=== PATIENT | male | born 1960 | race Caucasian/White ===

== ENCOUNTER → 2017-09-08 | Day surgery (SDC) | payer OTHER ==
[~2017-09-08] MED LIST: AMLODIPINE BESYL5 MG PO; ATORVASTATIN CA20 MG PO; BENICAR20 MG PO; EYE DROPS; EYE DROPS15 M1; FENTANYL CITRATE/PF 100MCG/2 ML INJ ONE; LEVOTHYROXINE75 MCG PO; LIDOCAINE HCL 2% LOCAL INJ 5 ML SDV VIAL INJ ONE; METFORMIN HCL500 M2 PO; MIDAZOLAM HCL 2 MG/2 ML VIAL ONE; PROPOFOL IV EMULSION 10 MG/ML 50 ML VIAL ONE
--- NOTE | 2017-09-08 15:56 | Operative Report ---
DATE OF PROCEDURE: September 08, 2017 REFERRING PHYSICIAN: Dr. Hanane Evans. PROCEDURE PERFORMED: 1. Esophagogastroduodenoscopy with biopsies. 2. Colonoscopy with polypectomy. INDICATIONS FOR ESOPHAGOGASTRODUODENOSCOPY: Anemia. INDICATIONS FOR COLONOSCOPY: Colorectal cancer screening. Anemia. MEDICATION: Patient was done under MAC. Please see anesthesiologist's note. PROCEDURE: With the patient in the left lateral decubitus position, the flexible fiberoptic Olympus gastroscope was introduced into the esophagus under direct visualization without any difficulty. There was some patchy erythema noted in the distal esophagus. The scope was then advanced with ease into the stomach. Mucosa overlying the antrum and the body revealed some patchy erythema and mild to moderate edema, and biopsies were obtained and sent to stain for H. pylori. The pylorus was of normal contour and shape, was intubated with ease, and the scope was advanced all the way to the 2nd portion of the duodenum. Mucosa overlying the proximal 2nd portion appeared to be within normal limits. Biopsies were obtained to rule out sprue considering patient's history of anemia. Mucosa overlying the duodenal bulb appeared to be within normal limits. The scope was then withdrawn back into the stomach and retroflexed, and the mucosa overlying the fundus and the cardia appeared to be within normal limits. The scope was then straightened out. The stomach was decompressed. The scope was subsequently withdrawn. Patient tolerated procedure well. IMPRESSION: 1. Distal esophagitis, mild. 2. Gastritis biopsied. Biopsies sent to stain for H. pylori. 3. Rule out sprue. PLAN: Follow up histology. Initiate Protonix 40 mg 1 p.o. q.a.m. a.c. Patient was then turned around and after adequate lubrication of the anal canal, a flexible fiberoptic Olympus colonoscope was inserted into the rectum with ease and advanced all the way to the cecum. Mucosa overlying the cecum, ascending and transverse appeared to be within normal limits. Some minimal diverticulosis was noted in the distal descending and the sigmoid colon. Two polyps were hot biopsied and 1 polyp was snared from the sigmoid colon. Two polyps were hot biopsied from the rectum. The scope was then retroflexed into the distal rectum, and small internal hemorrhoids were noted, none of which was actively bleeding. IMPRESSION: 1. Diverticulosis, minimal. 2. Sigmoid colon polyps times 3, 1 snared, 2 hot biopsied. 3. Rectal polyps times 2 hot biopsied. 4. Internal hemorrhoids, none actively bleeding. PLAN: Follow up histology. Initiate high-fiber low-fat diet. Initiate high-fiber supplement. Patient will need small-bowel series to complete workup. Patient might benefit from a followup colonoscopy in 3 years. Job#: [id number] EV cc:HANANE EVANS, DO
== END | disposition home or self-care (01) ==
LOC: OR 11:13
PROVIDERS: ATTEND Internal Medicine Gastroenterology
DX: D64.9 Anemia, unspecified (principal); K63.5 Polyp of colon; K62.1 Rectal polyp; K29.70 Gastritis, unspecified, without bleeding; K57.30 Diverticulosis of large intestine without perforation or abscess without bleeding; K20.9 Esophagitis, unspecified; K64.8 Other hemorrhoids; H40.9 Unspecified glaucoma; I10 Essential (primary) hypertension; E11.9 Type 2 diabetes mellitus without complications; Z01.810 Encounter for preprocedural cardiovascular examination
CPT/HCPCS: 36415; 43239; 45384; 45385; 82948; 93005; J2001; J2250

== ENCOUNTER 2018-08-12 09:19 | Observation (INO) | payer OTHER, BC ==
[~2018-08-12] VITALS: Ht 177.8 cm; Wt 80.3 kg
[2018-08-12] VITALS (9 sets, daily range): BP systolic 106–122; BP diastolic 58–86
[~2018-08-12 09:19] MED LIST changes: -FENTANYL CITRATE/PF 100MCG/2 ML INJ ONE; -LIDOCAINE HCL 2% LOCAL INJ 5 ML SDV VIAL INJ ONE; -MIDAZOLAM HCL 2 MG/2 ML VIAL ONE; +PREDNISOLO15 MG/5 ML OP; -PROPOFOL IV EMULSION 10 MG/ML 50 ML VIAL ONE
[2018-08-12 10:37] LABS: BASOPHILS % 0.4 % (0.0-1.0); EOSINOPHILS # (AUTO) 0.3 (0.0-0.4); EOSINOPHILS % 3.1 % (0.0-6.0); HEMATOCRIT 38.6 % (38.2-49.6); HEMOGLOBIN 13.3 g/dL (14.0-18.0); LYMPHOCYTES # (AUTO) 1.6 (1.0-3.2); LYMPHOCYTES % 17.5 % (18.0-39.1); MEAN CORPUSCULAR HEMOGLOBIN 31.1 pg (28-32); MEAN CORPUSCULAR HGB CONC 34.5 g/dL (31-35); MEAN CORPUSCULAR VOLUME 90.4 fL (81-99); MONOCYTES # (AUTO) 0.6 (0.2-0.8); MONOCYTES % 6.9 % (4.4-11.3); NEUTROPHILS # (AUTO) 6.4 (2.1-6.9); NEUTROPHILS % 71.8 % (38.7-80.0); PLATELET COUNT 217 x10e3/uL (140-360); RED BLOOD COUNT 4.27 x10e6/uL (4.3-5.7); RED CELL DISTRIBUTION WIDTH 11.9 % (11.7-14.4)
[2018-08-12] MEDS ORDERED: SODIUM CHLORIDE 0.9% 1000ML 1,000 ML ONE (10:44)
[2018-08-12] MEDS ORDERED: DIPHENHYDRAMINE HCL INJ 50 MG/ML VIAL ONE (10:44)
[2018-08-12] MEDS ORDERED: METHYLPREDNISOLONE SOD SUCC 125 MG/2ML VIAL ONE (10:44)
[2018-08-12] MEDS ORDERED: LIDOCAINE HCL 1% LOCAL INJ 20 ML VIAL ONE (10:44)
[2018-08-12] MEDS ORDERED: IOPAMIDOL 370 MG/ML 200 ML INFUS..BTL INJ ONE ×2 (10:44→12:03)
[2018-08-12] MEDS ORDERED: HEPARIN SOD/SOD CHLORIDE 2,000 ML ONE (10:44)
[2018-08-12 10:57] LABS: ALANINE AMINOTRANSFERASE 34 IU/L (0-55); ALBUMIN 4.8 g/dL (3.5-5.0); ALBUMIN/GLOBULIN RATIO 1.8 (0.8-2.0); ALKALINE PHOSPHATASE 48 IU/L (40-150); ANION GAP 18.1 mmol/L (8-16); BLOOD UREA NITROGEN 16 mg/dL (7-26); BUN/CREATININE RATIO 14 (6-25); CALCIUM 10.2 mg/dL (8.4-10.2); CARBON DIOXIDE 25 mmol/L (22-29); CHLORIDE 104 mmol/L (98-107); CREATINE KINASE 277 IU/L (30-200); CREATININE, SERUM 1.15 mg/dL (0.72-1.25); EST GLOMERULAR FILTRATION RATE > 60 ML/MIN (60-); GLUCOSE 162 mg/dL (74-118); POTASSIUM 4.1 mmol/L (3.5-5.1); SODIUM 143 mmol/L (136-145)
[2018-08-12] MEDS ORDERED: MIDAZOLAM HCL 2 MG/2 ML VIAL ONE (11:04)
[2018-08-12] MEDS ORDERED: VERAPAMIL HCL 2.5 MG/ML 2 ML VIAL ONE (11:04)
[2018-08-12] MEDS ORDERED: HEPARIN SOD (PORCINE) 1000 UNIT/ML 30ML ONE (11:04)
[2018-08-12] MEDS ORDERED: NITROGLYCERIN/D5W 200 MCG/ML 250 ML ONE (11:05)
[2018-08-12] MEDS ORDERED: FENTANYL CITRATE/PF 100MCG/2 ML INJ ONE (11:05)
[2018-08-12] MEDS ORDERED: ADENOSINE 3MG/1ML 30ML VIAL ONE (11:51)
[2018-08-12] MEDS ORDERED: SODIUM CHLORIDE 0.9% 50ML 0 ML ONE (11:51)
[2018-08-12] MEDS ORDERED: ASPIRIN 325 MG TAB ONE (12:21)
[2018-08-12] MEDS ORDERED: CLOPIDOGREL BISULFATE 75 MG TAB ONE (12:21)
[2018-08-12] MEDS ORDERED: INFLUENZA VIRUS VAC SPLIT INJ 0.5 ML SYR IM ONE (15:45)
[2018-08-12 19:07] LABS: CREATINE KINASE MB 3.8 ng/mL (0-5.0)
--- NOTE | 2018-09-01 12:37 | Operative Report ---
DATE OF PROCEDURE: August 12, 2018 INDICATIONS FOR PROCEDURE: Chest pain and positive stress test. PRESEDATION ASSESSMENT: The patient's medical record, pertinent diagnostic testing, previous record with anesthesia and social history were reviewed prior to the procedure. Patient was deemed to be an appropriate candidate for moderate sedation. INFORMED CONSENT: The risks, the benefits and the alternatives of the procedure were explained to the patient prior to the procedure, and informed consent was obtained. MEDICATION ADMINISTRATION: Please see nursing notes for medications administered during the procedure. PROCEDURES PERFORMED 1. Coronary angiography. 2. Left heart catheterization. 3. Percutaneous coronary intervention to the mid left anterior descending with Synergy 2.25 x 12 mm drug-eluting stent. PROCEDURE DETAILS: The patient was brought to the cardiac catheterization laboratory in a fasting state. The right wrist was prepped and draped in a sterile fashion. A 6-[place] Slender sheath was inserted in the right radial artery using the modified Seldinger technique. Coronary angiography was performed using a Nostalgia Bingo diagnostic catheter. A 70% lesion in the mid LAD was noted. For the PCI of the mid LAD, a 6-[place] XB3.5 guide catheter was used. Choice PT guidewire was used to cross the lesion. The lesion was directly stented using a 2.25 x 12 mm Synergy drug-eluting stent at high pressures. This resulted in excellent angiographic result with no residual dissection, thrombus or spasm. All catheters were removed over a wire. The case ended without any complications. Access site was closed using a TR band. PERTINENT FINDINGS 1. Left main coronary artery was a large vessel. No significant CAD. 2. The LAD was a large vessel that wraps around the apex. There is a 70% lesion of the mid LAD. There are 2 significant diagonal branches. 3. The left circumflex artery is a large, dominant, left circumflex artery, with 2 significant OM branches and distal PDA and PL branches. 4. RCA: Small, nondominant RCA. CONCLUSION: Successful PCI of the mid LAD with a Synergy 2.25 x 12 mm drug-eluting stent. RECOMMENDATIONS 1. Usual post-PCI care post TR band removal. 2. Continue aspirin and Plavix daily for at least 1 year, preferably longer. 3. Follow up in clinic 2 weeks after discharge. Thank you for this consult. Job#: [id number]
== END 2018-08-12 18:32 | disposition home or self-care (01) ==
LOC: ER 09:19 → UNDOADMOB 10:50 → ERHOLD 10:50 → CATH LAB 11:48 → PACU V 11:49 → MED/SURG 15:06
PROVIDERS: ADMIT Internal Medicine Interventional Cardiology; ATTEND Internal Medicine Interventional Cardiology
DX: I25.10 Atherosclerotic heart disease of native coronary artery without angina pectoris (principal); Z23 Encounter for immunization; Z91.041 Radiographic dye allergy status; Z79.84 Long term (current) use of oral hypoglycemic drugs; Z87.891 Personal history of nicotine dependence
CPT/HCPCS: 36415; 80053; 82550; 82553; 82948; 84484; 85025; 85347; 86850; 86900; 92928; 93005; 93454; 99284; G0378; J1200; J1644; J2001; J2250; J2930; J7030; Q9967; 80061; C1769; C1874; J0153

== ENCOUNTER → 2020-08-07 | Day surgery (SDC) | payer BC ==
[2020-08-02 08:34] LABS: BASOPHILS % 0.4 % (0.0-1.0); EOSINOPHILS # (AUTO) 0.4 (0.0-0.4); EOSINOPHILS % 5.1 % (0.0-6.0); HEMATOCRIT 36.6 % (38.2-49.6); HEMOGLOBIN 12.3 g/dL (14.0-18.0); LYMPHOCYTES # (AUTO) 1.7 (1.0-3.2); LYMPHOCYTES % 22.7 % (18.0-39.1); MEAN CORPUSCULAR HEMOGLOBIN 30.8 pg (28-32); MEAN CORPUSCULAR HGB CONC 33.6 g/dL (31-35); MEAN CORPUSCULAR VOLUME 91.7 fL (81-99); MONOCYTES # (AUTO) 0.6 (0.2-0.8); MONOCYTES % 7.9 % (4.4-11.3); NEUTROPHILS # (AUTO) 4.7 (2.1-6.9); NEUTROPHILS % 63.1 % (38.7-80.0); PLATELET COUNT 214 x10e3/uL (140-360); RED BLOOD COUNT 3.99 x10e6/uL (4.3-5.7); RED CELL DISTRIBUTION WIDTH 11.8 % (11.7-14.4)
[2020-08-02 09:12] LABS: ALBUMIN 4.5 g/dL (3.5-5.0); ALBUMIN/GLOBULIN RATIO 1.7 (0.8-2.0); ANION GAP 12.6 mmol/L (8-16); CALCIUM 8.6 mg/dL (8.4-10.2); CREATININE, SERUM 1.27 mg/dL (0.72-1.25); POTASSIUM 4.6 mmol/L (3.5-5.1)
[~2020-08-07] VITALS: Ht 175.3 cm; Wt 79.4 kg
[2020-08-07] VITALS (9 sets, daily range): BP systolic 109–160; BP diastolic 58–93
[~2020-08-07] MED LIST changes: +ALPRAZOLAM 0.5 MG TAB ONE; +CELEBREX200 MG PO; +DIPHENHYDRAMINE HCL 25 MG CAP ONE; +FAMOTIDINE 20 MG/2 ML VIAL IV ONE; +FENTANYL CITRATE/PF 100MCG/2 ML INJ ONE; +HEPARIN SOD (PORCINE) 1000 UNIT/ML 30ML ONE; +HEPARIN SOD/SOD CHLORIDE 2,000 ML ONE; +IOPAMIDOL 370 MG/ML 200 ML INFUS..BTL INJ ONE; +LIDOCAINE HCL 2% LOCAL 20 ML VIAL ONE; +LOSARTAN POTAS100 MG PO; +METFORMIN HCL500 MG PO; +METHYLPREDNISOLONE SOD SUCC 125 MG/2ML VIAL ONE; +METOPROLOL SUCC50 MG PO; +MIDAZOLAM HCL 2 MG/2 ML VIAL ONE; +PLAVIX75 MG PO; +RANEXA500 MG PO; +SODIUM CHLORIDE 0.9% 1000ML 1,000 ML ONE; +VERAPAMIL HCL 2.5 MG/ML 2 ML VIAL ONE
--- NOTE | 2020-08-07 11:45 | NUR ---
pt in ACU 8 , prepped for procedure. Alert oriented and appropriate, PERRLA, respirations even and unlabored to room air. Pulses x4 extremities equal and palpable . Cap fill brisk < 3 sec. + modified barbeau and neurovascular function of right wrist/hand. Right wrist and bilateral groin prepped for procedure. skin intact. Skin warm and dry integrity appears intact in general. IV 20g x2 atempt to right anterior forearm and presents healthy w/o s/s of infiltration or complaint. Abdomen soft and supple. pt offered toileting, denies need to urinate or defecate. Personal affects with patient. Family at bedside . Pt verbalizes understanding of POC. Educated recreation establishment manager light use. bed low and locked, side rails up x2 and call light at side. Awaiting for physician arrival/procedure time. pt using provided/ personal mask for COVID-19 mitigation. -cgf
--- NOTE | 2020-08-07 11:50 | NUR ---
Pre-op meds given (xanax 0.5mg, bandadryl 50mg, solumedrol 125mg IV and pepcid 20mg IV slow IVP) - IV patent
--- NOTE | 2020-08-07 12:15 | NUR ---
Dr Fam informing a delay to at least 1600 potentially, informed pt and family. pt allowed immediate snack, refuses. call light remains at side
--- NOTE | 2020-08-07 14:00 | NUR ---
pt resting with eyes closed, saturation 98%
--- NOTE | 2020-08-07 16:00 | NUR ---
patient and family informed delay in procedure time
--- NOTE | 2020-08-07 18:15 | NUR ---
recovery phase initiated continuation of care from procedure. Alert oriented and appropriate, PERRLA, respirations even and unlabored to room air. Pulses x4 extremities equal and strong. Right hand + neurovascular function Cap fill brisk < 3 sec. TR band present w/ reported 13ml to band Skin warm and dry integrity appears intact. IV 20g to left anterior forearm presents healthy w/o s/s of infiltration or complaint. Abdomen soft and supple. pt offered toileting, denies need to urinate or defecate. Personal affects with patient. Family not available. Pt understanding of POC. Bedside telemetry initiated. Currently w/o complaint of pain or need. Call light within reach, bed low and locked, side rails up x2. pt using provided/ personal mask for COVID-19 mitigation. -cgf
--- NOTE | 2020-08-07 18:20 | NUR ---
Dr Fam to bedside speaking with family and patient. POC reviewed.
--- NOTE | 2020-08-07 19:50 | NUR ---
TR band removed, and site gently cleansed. No swelling , + neurovascular function present. lite curlex dressing applied and radial/wrist care reinforced.
--- NOTE | 2020-08-07 20:01 | NUR ---
Pt meets discharge criteria. VS wnl, alert and oriented. Pt and Family Understands discharge instruction. Overall general assess w/o gross outliers. Skin warm, dry, and intact. Right radial dressing soft w/o s/s of hematoma. + neurovascular function of right hand present. IV removed and appears distal tip is intact. Pt maintains mask on for COVID 19 precautions being taken by wheel chair to awaiting car. Transfers w/o gross distress with discharge paperwork in hand.-cgf
--- NOTE | 2020-08-07 22:42 | Operative Report ---
DATE OF PROCEDURE: 08/07/2020 SURGEON: Sergey Fam MD INDICATIONS: Coronary artery disease, angina, and abnormal stress test. PROCEDURES PERFORMED: 1. Left heart catheterization, selective coronary angiography. 2. Deployment of right wrist TR band. 3. Conscious sedation, 35 minutes. COMPLICATIONS: None. BLOOD LOSS: Minimal. RECOMMENDATIONS: Medical therapy. DESCRIPTION OF PROCEDURE: Access was obtained in the right radial artery. A 5-Sami sheath was placed. Coronary angiography demonstrated 50% stenosis in the mid right coronary artery that was codominant. Circumflex was a large vessel, mild 20% to 30% stenosis; proximal left anterior descending artery 50% stenosis. LV end-diastolic pressure of 5. No gradient across the aortic valve on pullback. No intervention deemed necessary. Right wrist TR band applied. The patient discharged home the same day. Sergey Fam MD KSB/MODL /[id number]
== END | disposition home or self-care (01) ==
LOC: CATH LAB 10:00
PROVIDERS: ATTEND Internal Medicine Interventional Cardiology
DX: I25.118 Atherosclerotic heart disease of native coronary artery with other forms of angina pectoris (principal); M19.90 Unspecified osteoarthritis, unspecified site; I10 Essential (primary) hypertension; E78.00 Pure hypercholesterolemia, unspecified; E13.9 Other specified diabetes mellitus without complications; E07.9 Disorder of thyroid, unspecified; Z88.8 Allergy status to other drugs, medicaments and biological substances; Z91.041 Radiographic dye allergy status; R94.39 Abnormal result of other cardiovascular function study; Z01.812 Encounter for preprocedural laboratory examination; Z11.59 Encounter for screening for other viral diseases; Z79.84 Long term (current) use of oral hypoglycemic drugs; Z79.02 Long term (current) use of antithrombotics/antiplatelets
CPT/HCPCS: 36415; 80053; 85025; 93458; C1769; C1887; J1644; J2001; J2250; J2930; J3010; J7030; Q9967; U0002; 99152

== ENCOUNTER → 2020-12-31 | Day surgery (SDC) | payer BC ==
[2020-12-26 15:33] LABS: BASOPHILS % 0.4 % (0.0-1.0); EOSINOPHILS # (AUTO) 0.2 (0.0-0.4); HEMATOCRIT 34.2 % (38.2-49.6); HEMOGLOBIN 11.5 g/dL (14.0-18.0); LYMPHOCYTES # (AUTO) 1.7 (1.0-3.2); LYMPHOCYTES % 22.5 % (18.0-39.1); MEAN CORPUSCULAR HEMOGLOBIN 30.8 pg (28-32); MEAN CORPUSCULAR HGB CONC 33.6 g/dL (31-35); MEAN CORPUSCULAR VOLUME 91.7 fL (81-99); MONOCYTES # (AUTO) 0.6 (0.2-0.8); MONOCYTES % 8.3 % (4.4-11.3); NEUTROPHILS # (AUTO) 4.8 (2.1-6.9); NEUTROPHILS % 65.4 % (38.7-80.0); PLATELET COUNT 216 x10e3/uL (140-360); RED BLOOD COUNT 3.73 x10e6/uL (4.3-5.7)
[~2020-12-31] MED LIST changes: -ALPRAZOLAM 0.5 MG TAB ONE; -DIPHENHYDRAMINE HCL 25 MG CAP ONE; -FAMOTIDINE 20 MG/2 ML VIAL IV ONE; +GLIPIZIDE ER5 MG PO; -HEPARIN SOD (PORCINE) 1000 UNIT/ML 30ML ONE; -HEPARIN SOD/SOD CHLORIDE 2,000 ML ONE; -IOPAMIDOL 370 MG/ML 200 ML INFUS..BTL INJ ONE; -LIDOCAINE HCL 2% LOCAL 20 ML VIAL ONE; -METHYLPREDNISOLONE SOD SUCC 125 MG/2ML VIAL ONE; -MIDAZOLAM HCL 2 MG/2 ML VIAL ONE; +MIDAZOLAM HCL 5 MG/ML VIAL ONE; +PROPOFOL IV EMULSION 10 MG/ML 20 ML VIAL ONE; -SODIUM CHLORIDE 0.9% 1000ML 1,000 ML ONE; -VERAPAMIL HCL 2.5 MG/ML 2 ML VIAL ONE
[2020-12-31 15:15] VITALS: BP 99/72
== END | disposition home or self-care (01) ==
LOC: OR 11:54
PROVIDERS: ATTEND Internal Medicine Gastroenterology
DX: K20.90 Esophagitis, unspecified without bleeding (principal); K29.50 Unspecified chronic gastritis without bleeding; K44.9 Diaphragmatic hernia without obstruction or gangrene; K57.30 Diverticulosis of large intestine without perforation or abscess without bleeding; K63.5 Polyp of colon; D64.89 Other specified anemias; K64.8 Other hemorrhoids; Z79.84 Long term (current) use of oral hypoglycemic drugs; Z86.010 Personal history of colon polyps; Z91.041 Radiographic dye allergy status; E11.9 Type 2 diabetes mellitus without complications; I10 Essential (primary) hypertension; E78.00 Pure hypercholesterolemia, unspecified; E03.9 Hypothyroidism, unspecified; H40.9 Unspecified glaucoma; Z68.25 Body mass index [BMI] 25.0-25.9, adult; Z01.810 Encounter for preprocedural cardiovascular examination; Z01.812 Encounter for preprocedural laboratory examination
CPT/HCPCS: 36415 ×2; 43239; 45384; 82948; 85025; 93005; J2250; J2704; J3010; 45378

== ENCOUNTER 2022-11-21 01:54 | Emergency (ER) | payer BC ==
[~2022-11-21] VITALS: Ht 175.3 cm; Wt 79.4 kg
[~2022-11-21 01:54] MED LIST changes: -FENTANYL CITRATE/PF 100MCG/2 ML INJ ONE; -MIDAZOLAM HCL 5 MG/ML VIAL ONE; -PROPOFOL IV EMULSION 10 MG/ML 20 ML VIAL ONE
[2022-11-21 02:04] LABS: BASOPHILS % 0.4 % (0.0-1.0); EOSINOPHILS # (AUTO) 0.5 (0.0-0.4); EOSINOPHILS % 6.2 % (0.0-6.0); HEMATOCRIT 35.7 % (38.2-49.6); HEMOGLOBIN 11.6 g/dL (14.0-18.0); LYMPHOCYTES % 25.2 % (18.0-39.1); MEAN CORPUSCULAR HEMOGLOBIN 30.8 pg (28-32); MEAN CORPUSCULAR HGB CONC 32.5 g/dL (31-35); MEAN CORPUSCULAR VOLUME 94.7 fL (81-99); MONOCYTES # (AUTO) 0.6 (0.2-0.8); MONOCYTES % 7.6 % (4.4-11.3); NEUTROPHILS # (AUTO) 4.8 (2.1-6.9); NEUTROPHILS % 60.2 % (38.7-80.0); PLATELET COUNT 220 x10e3/uL (140-360); RED BLOOD COUNT 3.77 x10e6/uL (4.3-5.7); RED CELL DISTRIBUTION WIDTH 11.4 % (11.7-14.4)
[2022-11-21 02:25] LABS: ALBUMIN 4.3 g/dL (3.5-5.0); ALBUMIN/GLOBULIN RATIO 1.5 (0.8-2.0); CALCIUM 9.4 mg/dL (8.4-10.2); CREATININE, SERUM 1.26 mg/dL (0.72-1.25)
[2022-11-21 02:32] LABS: CREATINE KINASE MB 6.7 ng/mL (0-5.0)
[2022-11-21 04:30] LABS: CREATINE KINASE 225 IU/L (30-200)
== END 2022-11-21 04:59 | disposition home or self-care (01) ==
LOC: ER 02:08
DX: R07.89 Other chest pain (principal); I10 Essential (primary) hypertension; E11.65 Type 2 diabetes mellitus with hyperglycemia; E78.5 Hyperlipidemia, unspecified; E03.9 Hypothyroidism, unspecified
CPT/HCPCS: 36415; 71045; 80053; 82550; 82553; 83690; 84484; 85025; 93005; 99284